=== PATIENT | female | born 1955 | race Hispanic/Latino ===

== ENCOUNTER 2017-01-17 08:06 | Outpatient (CLI) | payer OTHER ==
[2017-01-17 08:36] LABS: Hemoglobin 13.8 g/dL (12.0-16.0); Mean Corpuscular HGB CONC 31.6 g/dL (32.0-36.0); Mean Corpuscular Hemoglobin 27.8 pg (27.0-31.0); Mean Corpuscular Volume 88.1 fl (81.0-99.0); Mean Platelet Volume 7.4 fL (7.4-10.4); Platelet Count 266 thou/uL (130-400); RBC Distribution Width 13.2 % (11.5-14.5); Red Blood Cell (RBC) Count 4.95 mill/uL (4.20-5.40); White Blood Cell (WBC) Count 5.8 thou/uL (4.8-10.8)
[2017-01-17 09:07] LABS: ALT (SGPT) 24 U/L (8-55); AST (SGOT) 32 U/L (5-34); Albumin 4.3 g/dL (3.5-5.0); Alkaline Phosphatase 89 U/L (40-150); Anion Gap 14 mmol/L (10-20); BUN (Urea Nitrogen) 18 mg/dL (9.8-20.1); Bilirubin, Total 0.5 mg/dL (0.2-1.2); Calc. Creatinine Clearance 0 mL/min (70-130); Calcium 9.9 mg/dL (7.8-10.44); Carbon Dioxide 29 mmol/L (22-29); Cardiac Risk 2.7 (Less than 4.5); Chloride 100 mmol/L (98-107); Cholesterol 207 mg/dl (< 200 Desired); Estimated GFR-MDRD 67; Globulin 3.3 g/dL (2.4-3.5); Glucose 92 mg/dL (70-105); HDL Cholesterol 78 mg/dL (>60 Neg Risk); LDL Cholesterol, Calculated 122 mg/dL; Potassium 4.7 mmol/L (3.5-5.1); Protein, Total 7.6 g/dL (6.0-8.3); Sodium 138 mmol/L (136-145); Triglycerides 36 mg/dL (Less than 150)
== END 2017-01-17 08:07 | disposition home or self-care (01) ==
LOC: MADLAB 08:06
PROVIDERS: ATTEND Internal Medicine
DX: E78.2 Mixed hyperlipidemia (principal); I10 Essential (primary) hypertension; E03.9 Hypothyroidism, unspecified
CPT/HCPCS: 36415; 80053; 80061; 84443; 85027; 86430

== ENCOUNTER 2017-10-14 02:57 | Emergency (ER) | payer SELFPAY ==
[2017-10-14 03:48] LABS: Bilirubin Negative (Negative); Blood, Urine Negative (Negative); Clarity Clear (Clear); Glucose, Urine (Dipstick) Negative (Negative); Leukocyte Trace (Negative); Nitrite Negative (Negative); Protein, Urine (Dipstick) Negative (Neg-Trace); Urobilinogen 0.2 mg/dL (0.2-1.0)
[2017-10-14 03:50] LABS: RBC/HPF 0-3 HPF (0-3)
[2017-10-14 03:51] LABS: Bacteria/HPF 2+ HPF (None Seen)
[2017-10-14] MEDS ORDERED: Ketorolac Tromethamine 30 MG/ML VIAL ONE (04:28)
[2017-10-14] MEDS ORDERED: Ondansetron ODT 4 MG TAB ONE (04:28)
[2017-10-14 04:42] LABS: #Basophils 0.1 thou/uL (0.0-0.2); #Eosinphils 0.3 thou/uL (0.0-0.7); #Lymphocytes 1.6 thou/uL (1.20-3.40); #Monocytes 0.6 thou/uL (0.11-0.59); #Neutrophils 3.2 thou/uL (1.40-6.50); %Basophils 1.5 % (0.0-1.0); %Eosinophils 4.8 % (0.0-10.0); %Lymphocytes 28.2 % (21.0-51.0); %Monocytes 10.7 % (0.0-10.0); %Neutrophils 54.8 % (42.0-75.0); Hemoglobin 12.2 g/dL (12.0-16.0); Mean Corpuscular HGB CONC 32.7 g/dL (32.0-36.0); Mean Corpuscular Hemoglobin 27.7 pg (27.0-31.0); Mean Corpuscular Volume 84.6 fl (81.0-99.0); Mean Platelet Volume 5.9 fL (7.4-10.4); Platelet Count 274 thou/uL (130-400); RBC Distribution Width 12.8 % (11.5-14.5); Red Blood Cell (RBC) Count 4.42 mill/uL (4.20-5.40); White Blood Cell (WBC) Count 5.8 thou/uL (4.8-10.8)
[2017-10-14] MEDS ORDERED: Sodium Chloride 0.9% 1,000 ML BAG ONE (04:47)
[2017-10-14 04:57] LABS: ALT (SGPT) 20 U/L (8-55); AST (SGOT) 30 U/L (5-34); Albumin 3.9 g/dL (3.5-5.0); Alkaline Phosphatase 69 U/L (40-150); Anion Gap 16 mmol/L (10-20); BUN (Urea Nitrogen) 14 mg/dL (9.8-20.1); Bilirubin, Total 0.4 mg/dL (0.2-1.2); Calc. Creatinine Clearance 0 mL/min (70-130); Calcium 9.8 mg/dL (7.8-10.44); Carbon Dioxide 25 mmol/L (22-29); Chloride 104 mmol/L (98-107); Estimated GFR-MDRD 65; Glucose 82 mg/dL (70-105); Lipase 18 U/L (8-78); Protein, Total 6.9 g/dL (6.0-8.3); Sodium 141 mmol/L (136-145)
[2017-10-14] MEDS ORDERED: Morphine 10 MG/ML VIAL ONE (05:36)
[2017-10-14] MEDS ORDERED: Ciprofloxacin Lactate/D5W 400 mg/200 ml Premix ONE (06:15)
[2017-10-14] MEDS ORDERED: HYDROcodone/Acetaminophen 10/325 mg Tablet ONE (06:15)
[2017-10-14] MEDS ORDERED: Phenazopyridine HCl 97.5 MG TABLET ONE (06:16)
--- NOTE | 2017-10-14 08:36 | CT ---
PRELIMINARY REPORT/[facility]/EMERGENTY AFTER-HOURS PROCEDURE CT Abdomen and Pelvis Without Intravenous Contrast EXAM DATE/TIME: 10/14/2017 4:34 AM CLINICAL HISTORY: 62 years old, female; Pain; Abdominal pain; Flank; Right TECHNIQUE: Axial computed tomography images of the abdomen and pelvis without intravenous contrast. Coronal refo rmatted images were created and reviewed. COMPARISON: No relevant prior studies available. FINDINGS: Lung bases: Unremarkable. No mass. No consolidation. ABDOMEN: Liver: Unremarkable. Gallbladder and bile ducts: Unremarkable. Pancreas: Unremarkable. Spleen: Small accessory spleen is present. Adrenals: Unremarkable. No mass. Kidneys and ureters: No renal calcifications, hydronephrosis, or hydroureter. Stomach and bowel: Large amount of stool throughout the large bowel. PELVIS: Appendix: The appendix is normal. Bladder: Unremarkable. No stones. Reproductive: normal. No mass ABDOMEN and PELVIS: Intraperitoneal space: No free fluid within the pelvis or within the dependent portions of the perito neum. No free air. Bones/joints: No acute fracture. No dislocation. Soft tissues: Unremarkable. Vasculature: Unremarkable. No abdominal aortic aneurysm. Lymph nodes: Unremarkable. No enlarged lymph nodes. Tubes, lines and devices: intrauterine device Other findings: No acute intra-abdominal process. No inflammatory process. No obstruction. IMPRESSION: 1. No acute intra-abdominal process. No inflammatory process. No obstruction. 2. The appendix is normal. 3. Large amount of stool throughout the large bowel. 4. No renal calcifications, hydronephrosis, or hydroureter. Thank you for allowing us to participate in the care of your patient. Dictated and Authenticated by: Tor Taylor MD 10/14/2017 5:41 AM Central Time ([place] & [place]) ABDOMEN CT WITHOUT CONTRAST PELVIC CT WITHOUT CONTRAST: HISTORY: Right flank pain. COMPARISON: None. TECHNIQUE: Abdomen and pelvic CT performed without contrast. Coronal reformatted images are submitted for inter pretation. FINDINGS: This report is in agreement with the preliminary report by [facility]. There is a normal-caliber appendix. There is no evidence of nephrolithiasis or obstructive uropathy. There is some scattered fecal mate rial in the colon. The amount of fecal material is not necessarily suggestive of constipation. Derrick elate clinically. Note is made of an intrauterine device. Consider removal in a patient of this age as it is likely no longer necessary. Results of the study are discussed with the ER physician, Dr. Almeida, 10/14/17 at 8:06 a.m. CODE BHANU POS: [facility]
== END 2017-10-14 07:42 | disposition home or self-care (01) ==
LOC: MADERS 02:57
DX: N12 Tubulo-interstitial nephritis, not specified as acute or chronic (principal); E03.9 Hypothyroidism, unspecified; E78.5 Hyperlipidemia, unspecified; I10 Essential (primary) hypertension; F32.9 Major depressive disorder, single episode, unspecified; Z79.899 Other long term (current) drug therapy
CPT/HCPCS: 74176; 80053; 81001; 83690; 85025; 87086; 96361; 96365; 96375; J0744; J1885; J2270; J7050; Q0162

== ENCOUNTER 2018-02-25 10:19 | Emergency (ER) | payer SELFPAY ==
[2018-02-25 10:56] LABS: #Basophils 0.1 thou/uL (0.0-0.2); #Eosinphils 0.1 thou/uL (0.0-0.7); #Lymphocytes 1.5 thou/uL (1.20-3.40); #Monocytes 0.6 thou/uL (0.11-0.59); %Basophils 1.3 % (0.0-1.0); %Eosinophils 0.8 % (0.0-10.0); %Lymphocytes 20.7 % (21.0-51.0); %Monocytes 8.6 % (0.0-10.0); %Neutrophils 68.6 % (42.0-75.0); Hemoglobin 12.2 g/dL (12.0-16.0); Mean Corpuscular HGB CONC 32.3 g/dL (32.0-36.0); Mean Corpuscular Volume 86.8 fL (78.0-98.0); Mean Platelet Volume 6.3 fL (7.4-10.4); Platelet Count 281 thou/uL (130-400); RBC Distribution Width 12.2 % (11.5-14.5); Red Blood Cell (RBC) Count 4.37 mill/uL (4.20-5.40); White Blood Cell (WBC) Count 7.3 thou/uL (4.8-10.8)
[2018-02-25 11:15] LABS: ALT (SGPT) 21 U/L (8-55); AST (SGOT) 29 U/L (5-34); Albumin 4.2 g/dL (3.5-5.0); Alkaline Phosphatase 80 U/L (40-150); Anion Gap 13 mmol/L (10-20); BUN (Urea Nitrogen) 11 mg/dL (9.8-20.1); Bilirubin, Total 0.7 mg/dL (0.2-1.2); Calc. Creatinine Clearance 0 mL/min (70-130); Calcium 9.4 mg/dL (7.8-10.44); Carbon Dioxide 25 mmol/L (22-29); Chloride 98 mmol/L (98-107); Estimated GFR-MDRD 72; Globulin 2.6 g/dL (2.4-3.5); Glucose 94 mg/dL (70-105); Potassium 3.9 mmol/L (3.5-5.1); Protein, Total 6.8 g/dL (6.0-8.3); Sodium 132 mmol/L (136-145)
--- NOTE | 2018-02-25 12:21 | RAD ---
PORTABLE AP CHEST XRAY: DATE: 02/25/18. HISTORY: Dyspnea. COMPARISON: None available. FINDINGS: Cardiac silhouette is magnified by projection. Pulmonary vasculature is within normal limits. The l ungs are clear. Vascular calcification is seen in the thoracic aorta. Osseous structures are intact . IMPRESSION: No acute cardiopulmonary process. POS: [facility]
== END 2018-02-25 11:30 | disposition home or self-care (01) ==
LOC: MADERS 10:19
DX: F41.9 Anxiety disorder, unspecified (principal); E78.5 Hyperlipidemia, unspecified; I10 Essential (primary) hypertension; F32.9 Major depressive disorder, single episode, unspecified; E03.9 Hypothyroidism, unspecified; Z79.899 Other long term (current) drug therapy
CPT/HCPCS: 36415; 71045; 80053; 83880; 84484; 85025; 93005

== ENCOUNTER 2020-02-21 13:13 | Emergency (ER) | payer OTHER, SELFPAY ==
[2020-02-21 14:06] LABS: Blood, Urine Negative (Negative); Glucose, Urine (Dipstick) 100 mg/dL (Negative); Leukocyte Negative (Negative); Specific Gravity, Urine 1.015 (1.005-1.030)
[2020-02-21 14:10] LABS: Clarity Hazy (Clear); Ketone, Urine Unable to Interpret mg/dL (Negative); Nitrite Unable to Interpret (Negative); Protein, Urine (Dipstick) Unable to Interpret mg/dL (Neg-Trace)
[2020-02-21 14:11] LABS: Bilirubin Unable to Interpret (Negative); Urobilinogen UNABLE TO INTERPRET mg/dL (Less than 2)
[2020-02-21 14:13] LABS: Bacteria/HPF Rare-Few HPF (None Seen); RBC/HPF 0-3 HPF (0-3); Squamous Epithelial 0-3 HPF (0-3); WBC/HPF 0-3 HPF (0-3)
--- NOTE | 2020-02-21 14:46 | CT ---
CT ABDOMEN PELVIS WITHOUT IV CONTRAST: HISTORY:Abdominal pain COMPARISON: 10/14/2017 DISCLAIMER: Absence of oral and IV contrast reduces the sensitivity of the exam particularly for the evaluation of solid organs and bowel. FINDINGS: There are mild dependent changes in the lung bases. No free air or free fluid is seen in the abdomen or pelvis. No calcified gallstones are noted. A small hiatal hernia is noted. No calculi are seen in the kidneys, ureters or the urinary bladder. No hydroureteronephrosis seen on either side. The small bowel loops are not abnormally dilated. A normal-appearing appendix is present. There is a uterus with an IUD in place which is also seen on the previous study. There are vascular calcifications without evidence of aneurysmal dilatation of the abdominal aorta. T here are degenerative changes in the spine. IMPRESSION: 1. No CT evidence of urinary tract calculi/obstruction or appendicitis. 2. IUD remains in place. 3. Small hiatal hernia.
[2020-02-21 14:49] LABS: #Basophils 0.1 thou/uL (0.0-0.2); #Eosinphils 0.2 thou/uL (0.0-0.7); #Lymphocytes 2.1 thou/uL (1.20-3.40); #Monocytes 0.8 thou/uL (0.11-0.59); #Neutrophils 3.7 thou/uL (1.40-6.50); %Basophils 1.3 % (0.0-1.0); %Eosinophils 3.6 % (0.0-10.0); %Lymphocytes 30.7 % (21.0-51.0); %Neutrophils 53.4 % (42.0-75.0); Hemoglobin 11.5 g/dL (12.0-16.0); Mean Corpuscular HGB CONC 30.7 g/dL (32.0-36.0); Mean Corpuscular Hemoglobin 26.6 pg (27.0-31.0); Mean Corpuscular Volume 86.7 fL (78.0-98.0); Mean Platelet Volume 5.9 fL (7.4-10.4); Platelet Count 286 thou/uL (130-400); RBC Distribution Width 13.5 % (11.5-14.5); Red Blood Cell (RBC) Count 4.32 mill/uL (4.20-5.40); White Blood Cell (WBC) Count 6.9 thou/uL (4.8-10.8)
[2020-02-21 15:08] LABS: ALT (SGPT) 18 U/L (8-55); AST (SGOT) 23 U/L (5-34); Alkaline Phosphatase 70 U/L (40-110); Anion Gap 14 mmol/L (10-20); BUN (Urea Nitrogen) 17 mg/dL (9.8-20.1); Bilirubin, Total 0.3 mg/dL (0.2-1.2); Calc. Creatinine Clearance 0 mL/min (70-130); Calcium 9.2 mg/dL (7.8-10.44); Carbon Dioxide 26 mmol/L (23-31); Chloride 102 mmol/L (98-107); Estimated GFR-MDRD 68; Globulin 2.6 g/dL (2.4-3.5); Glucose 91 mg/dL (80-115); Lipase 22 U/L (8-78); Potassium 4.1 mmol/L (3.5-5.1); Protein, Total 6.6 g/dL (6.0-8.3); Sodium 138 mmol/L (136-145)
[2020-02-21] MEDS ORDERED: HYDROcodone/Acetaminophen 5/325 mg Tablet ONE (16:15)
== END 2020-02-21 16:16 | disposition home or self-care (01) ==
LOC: MADERS 13:13
DX: M54.5 Low back pain (principal); R10.9 Unspecified abdominal pain; E03.9 Hypothyroidism, unspecified; E78.5 Hyperlipidemia, unspecified; I10 Essential (primary) hypertension; F31.9 Bipolar disorder, unspecified; Z79.899 Other long term (current) drug therapy
CPT/HCPCS: 36415; 74176; 80053; 81001; 83605; 83690; 85025

== ENCOUNTER 2023-07-21 08:08 | Emergency (ER) | payer MEDICARE ==
[2023-07-21 08:40] LABS: #Basophils 0.1 thou/uL (0.0-0.2); #Eosinphils 0.1 thou/uL (0.0-0.7); #Lymphocytes 1.7 thou/uL (1.20-3.40); #Monocytes 0.8 thou/uL (0.11-0.59); #Neutrophils 5.8 thou/uL (1.40-6.50); %Basophils 0.9 % (0.0-1.0); %Eosinophils 0.7 % (0.0-10.0); %Monocytes 9.4 % (0.0-10.0); %Neutrophils 69.1 % (42.0-75.0); Hematocrit 31.7 % (36.0-47.0); Hemoglobin 10.2 g/dL (12.0-16.0); Mean Corpuscular HGB CONC 32.1 g/dL (32.0-36.0); Mean Corpuscular Hemoglobin 29.2 pg (27.0-31.0); Mean Platelet Volume 6.7 fL (7.4-10.4); Platelet Count 284 10x3/uL (130-400); RBC Distribution Width 13.1 % (11.5-14.5); Red Blood Cell (RBC) Count 3.48 mill/uL (4.20-5.40); White Blood Cell (WBC) Count 8.4 10x3/uL (4.8-10.8)
[2023-07-21 08:48] LABS: ALT (SGPT) 25 U/L (8-55); AST (SGOT) 30 U/L (5-34); Alkaline Phosphatase 64 U/L (40-110); Anion Gap 15 mmol/L (10-20); BUN (Urea Nitrogen) 30 mg/dL (9.8-20.1); Bilirubin, Total 0.9 mg/dL (0.2-1.2); Calc. Creatinine Clearance 0 mL/min (70-130); Carbon Dioxide 19 mmol/L (23-31); Chloride 99 mmol/L (98-107); Estimated GFR 9; Globulin 2.6 g/dL (2.4-3.5); Glucose 130 mg/dL (80-115); Potassium 3.4 mmol/L (3.5-5.1); Protein, Total 6.6 g/dL (5.8-8.1); Sodium 130 mmol/L (136-145)
[2023-07-21 08:49] LABS: Troponin I 0.011 ng/mL (< 0.028)
[2023-07-21] MEDS ORDERED: Aspirin Chewable 81 MG TAB ONE (08:59)
[2023-07-21] MEDS ORDERED: Mag-Al Plus 1200/1200/120 MG (30 mL) UDCUP ONE (09:00)
[2023-07-21] MEDS ORDERED: Sodium Chloride 0.9% 1,000 ML ONE (09:00)
[2023-07-21] MEDS ORDERED: Lidocaine 2% Viscous 100 ML BOTTLE ONE (09:00)
[2023-07-21 09:02] LABS: Glucose, Urine (Dipstick) Negative (Negative); Leukocyte Negative (Negative); Nitrite Positive (Negative)
[2023-07-21 09:03] LABS: Bilirubin Negative (Negative); Blood, Urine Trace (Negative)
[2023-07-21 09:04] LABS: Clarity Clear (Clear); Ketone, Urine Negative (Negative); Protein, Urine (Dipstick) Negative (Neg-Trace)
[2023-07-21 09:06] LABS: RBC/HPF 0-3 HPF (0-3)
[2023-07-21 09:07] LABS: Bacteria/HPF 1+ HPF (None Seen); CAUTI Indications for Culture Pelvic or flank pain; WBC/HPF 0-3 HPF (0-3)
[2023-07-21 09:08] LABS: Urine Culture Reflex No No
[2023-07-21] MEDS ORDERED: cefTRIAXone (ROCEPHIN) 1 GM VIAL ONE (09:24)
== END 2023-07-21 12:00 | disposition short-term general hospital (02) ==
LOC: MADERS 08:08
DX: N39.0 Urinary tract infection, site not specified (principal); N19 Unspecified kidney failure; E03.9 Hypothyroidism, unspecified; E78.5 Hyperlipidemia, unspecified; I10 Essential (primary) hypertension; Z79.899 Other long term (current) drug therapy
CPT/HCPCS: 51702; 71045; 72100; 72170; 74176; 80053; 81001; 83880; 84484; 85025; 87086; 93005; 96361; 96374; J0696; J7050